=== PATIENT | male | born 1950 | race Caucasian/White ===

== ENCOUNTER 2024-04-22 10:37 | Emergency (ER) | payer OTHER, SELFPAY ==
[2024-04-22 10:39] VITALS: BP 135/94
[2024-04-22 10:56] LABS: % Basophils 1.1 % (0-2); % Eosinophils 2.7 % (0-6); % Immature Granulocytes 0.3 % (0-0.5); % Lymphocytes 28.1 % (20.5-51.1); % Monocytes 8.7 % (1.7-9.3); % Neutrophils 59.1 % (42.2-75.2); Absolute Basophils 0.1 10^3/uL (0-0.2); Absolute Eosinophils 0.2 10^3/uL (0-0.7); Absolute Lymphocytes 2.1 10^3/uL (1.2-3.4); Absolute Monocytes 0.6 10^3/uL (0.1-0.6); Absolute Neutrophils 4.4 10^3/uL (1.4-6.5); Hematocrit 41.1 % (39.0-52.0); Hemoglobin 14.3 g/dL (13.0-18.0); Mean Corp Hgb Conc. 34.8 g/dL (33.0-37.0); Mean Corpuscular Hgb 28.9 pg (27.0-31.0); Mean Platelet Volume 9.6 fL (7.4-10.4); Nucleated Red Blood Cells % 0 % (-); Platelet Count 311 10^3/uL (130-400); Red Blood Cell Count 4.95 10^6/uL (4.70-6.10); Red Cell Dist. Width 12.7 % (11.5-14.5); White Blood Cell Count 7.4 10^3/uL (4.8-10.8)
[2024-04-22 11:22] LABS: ALT (SGPT) 22 U/L (0-50); AST (SGOT) 30 U/L (17-59); Albumin 4.6 g/dl (3.5-5.0); Alkaline Phosphatase 69 U/L (38-126); Blood Urea Nitrogen 17 mg/dl (9-20); Calcium 9.4 mg/dl (8.4-10.2); Carbon Dioxide 25 mmol/L (22-30); Chloride 103 mmol/L (98-107); Glucose 101 mg/dl (70-99); Potassium 4.5 mmol/L (3.5-5.1); Sodium 142 mmol/L (135-145); Total Bilirubin 0.7 mg/dl (0.2-1.3); Total Protein 7.1 g/dl (6.3-8.2); eGFR > 60.00
--- NOTE | 2024-04-22 11:27 | ED.GENMED ---
History of Present Illness
General
Chief Complaint: Weakness
Source: patient
Exam Limitations: none
Time Seen by Provider: 04/22/24 10:59
History of Present Illness
History of Present Illness:
73-year-old male presents with persistent fatigue and low grade fevers over the past several weeks. He was thought initially to have urinary tract infection with lower abdominal discomfort and urinary symptoms. He was placed on Cipro initially for
12 days through an urgent care. At the end of the 12 days he still was not feeling quite well with follow-up with his family doctor. Family doctor put him on another 5 days of Cipro. He finished this over 24 hours ago and still is not quite
feeling well. He is tired. He notes night sweats. He denies urinary symptoms. He does note some mild low back pain as well as lower abdominal pain. He denies headache nasal congestion cough or shortness of breath. No rash. No known tick
bites. No other complaints at this time
Past History
Past History
ED Past Medical History: None
ED Past Surgical History: Other (History of colonoscopy, nasal polypectomies, Colestialtoma of the left ear, 2 hernia operations as a child)
Social History
Personal: Single
Living: other (Lives with a friend)
Employment: Employed
Phy Exam
Physical Exam
Physical Exam:
General: Well-appearing male no respiratory distress
HEENT: Normocephalic atraumatic
Heart: Regular rate and rhythm no murmurs
Lungs: Clear no wheeze or rales
Abdomen is soft but tender to the lower abdomen no guarding or rebound normal bowel sounds no significant costovertebral angle tenderness
Extremities: No cyanosis
Course
Orders/Labs/Results
Orders:
Orders
04/22/24 10:49
Complete Blood Count/With Diff Urgent
Comprehensive Metabolic Panel Urgent
Lyme Progressive Urgent
Date Specimen was Collected: 04/22/24
Time Specimen was Collected: 10:46
Comment: ADD ON
04/22/24 11:15
Add On- LAB Urgent
Tests Added?: lyme progressive
04/22/24 11:16
CT Abd/pelvis W Iv Cont Urgent
Comment:
Reason For Exam: lower abdominal pain, urinary symptoms
04/22/24 11:35
CR Chest - 2 Views Urgent
Comment:
Reason For Exam: fatigue, night sweats
04/22/24 12:12
Urinalysis Reflex To Culture Urgent
Date Specimen was Collected: 04/22/24
Time Specimen was Collected: 10:46
Urine Microscopic Reflex Cult Urgent
Abnormal Lab Results
04/22/24 04/22/24
10:49 12:12
Glucose 101 H mg/dl
(70-99)
Leukocyte Esterase Rfl Trace A
(Negative)
Urine Bacteria (Reflex) Few A
(Negative)
04/22/24 10:49
04/22/24 10:49
Vital Signs
Initial and Last Documented VS:
Initial Vital Signs
Temp Pulse Resp BP Pulse Ox
99.0 F 94 16 135/94 98
04/22/24 10:39 04/22/24 10:39 04/22/24 10:39 04/22/24 10:39 04/22/24 10:39
Last Documented Vital Signs
Temp Pulse Resp BP Pulse Ox
99.0 F 78 18 122/79 96
04/22/24 10:39 04/22/24 13:40 04/22/24 13:40 04/22/24 13:40 04/22/24 13:40
*Critical Care Note
Total Time (30-74mins, 75-104mins- exclusive of procedures): Not Applicable
Update Note
Update Note:
Fatigue night sweats. Initially thought to be related to urinary tract infection but finished 17 days worth of Cipro. Urinalysis pending. Check labs. Lyme test ordered. Given the lower abdominal tenderness will order CT and also chest x-ray
Workup here essentially unremarkable. Normal white count CT negative chest x-ray clear. Urine with few bacteria and white blood cells. No nitrites. Will hold off on treating any urinary tract infection pending urine culture. Patient recently
just finished 17 days worth of Cipro for potential UTI. Lyme test is pending. Reassured patient. Recommend follow-up. Advised that he would receive a call if his urine culture or Lyme test are positive
ED Attending Note
-
Portions of this chart may have been created with voice recognition software.� Occasional wrong word or��sound alike� substitutions may have occurred due to the inherent limitations of voice recognition software.
Discharge Plan
Departure
Patient Disposition: Home (Routine Discharge)
Date of Disposition: 04/22/24
Time of Disposition: 14:37
Patient with high blood pressure during this ER visit?: No
Discharge Problem:
Fatigue
Instructions: Generalized Weakness (DC)
Prescriptions:
No Action
Theragen Tablet
1 tab PO DAILY
Cinnamon
1 tab PO DAILYPRN PRN (Reason: supplement)
garlic
1 tab PO DAILY
Referrals:
Daniel Martin MD [Family Provider] -
Activity Restrictions/Additional Instructions:
Please return here for any worsening symptoms. You should receive a call if your Lyme test or urine cultures are positive
Interventions
Interventions:
*Risk Screen - Suicide Last Done: 04/22/24 10:44
*General Assessment Last Done: 04/22/24 11:56
*Neglect/Abuse Screening Last Done: 04/22/24 10:44
ED- Fall Risk Assessment Last Done: 04/22/24 11:55
*ED COVID-19 Vaccine History Last Done: 04/22/24 11:56
ED- Cardiac Assessment Last Done: 04/22/24 11:55
ED- Neurological Assessment Last Done: 04/22/24 11:55
ED- Pulmonary Assessment Last Done: 04/22/24 11:55
Discharge Date and Time
Print Language: BAHAMIAN
[2024-04-22 11:55] VITALS: BP 137/84; BMI 24.0
[2024-04-22 12:23] LABS: Urine Albumin Negative (Neg - Trace); Urine Bilirubin Negative (Negative); Urine Character Clear (Clear); Urine Color Yellow; Urine Glucose Negative (Negative); Urine Ketone Negative (Negative); Urine Leukocyte Trace (Negative); Urine Nitrite Negative (Negative); Urine Occult Blood Negative (Negative); Urine Specific Gravity 1.015 (<1.030); Urine Urobilinogen Negative (Neg - 1+)
[2024-04-22 13:00] LABS: Urine Bacteria Few (Negative); Urine Red Blood Cell 0-2 /HPF (0-2)
[2024-04-22 13:40] VITALS: BP 122/79
[2024-04-22 14:00] VITALS: BP 111/76
[2024-04-24 15:35] LABS: Lyme Antibody Screen, EIA Negative (Negative)
== END 2024-04-22 14:55 | disposition home or self-care (01) ==
LOC: EMR 10:37
PROVIDERS: Emergency Medicine; EMERGENCY PHYSICIAN Student in an Organized Health Care Education/Training Program; FAMILY PHYSICIAN Internal Medicine
DX: R53.83 Other fatigue (principal)
CPT/HCPCS: 99284; 71046; 74177; 80053; 81003; 81015; 85025; 86618; Q9967